=== PATIENT | male | born 1955 | race Caucasian/White ===

== ENCOUNTER 2019-01-05 16:45 | Emergency (ER) | payer OTHER ==
[~2019-01-05] VITALS: Ht 175.3 cm; Wt 100.0 kg
[2019-01-05] MEDS ORDERED: INSLAN SQ (17:03)
[2019-01-05] MEDS ORDERED: ATOR20TA86 PO (17:05)
[2019-01-05] MEDS ORDERED: TAMS-13 PO (17:05)
[2019-01-05] MEDS ORDERED: OXCA600T37 PO (17:05)
[2019-01-05] MEDS ORDERED: METF-960 PO (17:05)
[2019-01-05] MEDS ORDERED: FENO160T41 PO (17:05)
[2019-01-05] MEDS ORDERED: LEVE500T53 PO (17:05)
[2019-01-05 17:12] LABS: GLUCOSE,POINT OF CARE 100 MG/DL (70-110)
[2019-01-05] MEDS ORDERED: ACETAMINOPHEN 500 MG TABLET PO ONE (19:00)
[2019-01-05] MEDS ORDERED: DEXAMETHASONE 4 MG TABLET PO ONE (19:30)
[2019-01-05 20:32] VITALS: BP 124/79
== END 2019-01-05 20:48 | disposition home or self-care (01) ==
LOC: EMS 16:47
DX: J02.8 Acute pharyngitis due to other specified organisms (principal); B97.89 Other viral agents as the cause of diseases classified elsewhere; E11.9 Type 2 diabetes mellitus without complications; E78.00 Pure hypercholesterolemia, unspecified; Z98.890 Other specified postprocedural states; Z79.899 Other long term (current) drug therapy; Z79.4 Long term (current) use of insulin
CPT/HCPCS: 82962; 87430; 99283; J8540